=== PATIENT | female | born 1995 | race American Indian/Alaskan Native ===

== ENCOUNTER 2017-01-15 23:12 | Emergency (ER) | payer BC ==
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
[2017-01-16] MEDS ORDERED: MOTRIN PO ONE (03:36)
[2017-01-16] MEDS ORDERED: BOOSTRIX IM ONE (03:49)
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
[2017-01-16 04:44] VITALS: BP 125/74
== END 2017-01-16 04:45 | disposition home or self-care (01) ==
LOC: ED 23:12
DX: S90.811A Abrasion, right foot, initial encounter (principal); M54.5 Low back pain; Z91.038 Other insect allergy status; W22.8XXA Striking against or struck by other objects, initial encounter; Y93.89 Activity, other specified; Y92.89 Other specified places as the place of occurrence of the external cause; Y99.8 Other external cause status
CPT/HCPCS: 71020; 72100; 81025; 90471; 90715